=== PATIENT | female | born 2000 | race Caucasian/White ===

== ENCOUNTER 2023-08-07 18:26 | Emergency (ER) | payer MEDICAID ==
[~2023-08-07] VITALS: Ht 149.9 cm; Wt 72.6 kg
[2023-08-07 18:26] VITALS: BP_SYST 129; PULSE 102; RESP 17; TEMP 98.8; O2SAT 98
[2023-08-07 19:23] LABS: BASOPHILS # (AUTO) 0.2 K/uL (0.0-0.2); BASOPHILS % (AUTO) 2.3 % (0.0-2.0); EOSINOPHILS # (AUTO) 0.1 K/uL (0.0-0.4); EOSINOPHILS % (AUTO) 0.9 % (0.0-4.0); HEMATOCRIT 39.1 % (36-48); HEMOGLOBIN 13.6 g/dL (12.0-16.0); LYMPHOCYTES # (AUTO) 1.3 K/uL (1.0-5.5); LYMPHOCYTES % (AUTO) 11.6 % (20.5-51.5); MEAN CORPUSCULAR HEMOGLOBIN 31 pg (27-31); MEAN CORPUSCULAR HGB CONC 35 % (32-36); MEAN CORPUSCULAR VOLUME 90 fL (79.0-98.0); MONOCYTES % (AUTO) 8.8 % (1.7-9.3); NEUTROPHILS # (AUTO) 8.3 K/uL (1.8-7.7); NEUTROPHILS % (AUTO) 76.4 % (40.0-70.0); PLATELET COUNT (AUTO) 265 K/uL (130-430); RED BLOOD CELL COUNT(AUTO) 4.34 MIL/uL (4.2-6.2); RED CELL DISTRIBUTION WIDTH 12.8 % (9.0-15.0); WHITE BLOOD COUNT (AUTO) 10.9 K/uL (4.8-10.8)
[2023-08-07] MEDS: KETOROLAC TROMETHAMINE 30 MG VIAL IM ONE (19:32)
[2023-08-07 19:37] LABS: BILIRUBIN,URINE NEGATIVE (NEGATIVE); BLOOD, URINE NEGATIVE (NEGATIVE); CLARITY/URINE CLEAR (CLEAR); COLOR,URINE YELLOW (YELLOW); GLUCOSE,URINE NEGATIVE (NEGATIVE); KETONES,URINE TRACE (NEGATIVE); LEUKOCYTE ESTERASE ,URINE NEGATIVE (NEGATIVE); NITRITE, URINE NEGATIVE (NEGATIVE); PROTEIN URINE NEGATIVE (NEGATIVE)
[2023-08-07 19:39] LABS: ALBUMIN 3.5 g/dL (3.4-4.8); BILIRUBIN,DIRECT 0.1 mg/dL (0.0-0.3); CALCIUM 9.2 mg/dL (8.4-11.0); CREATININE 0.83 mg/dL (0.55-1.30); POTASSIUM 4.7 mmol/L (3.5-5.1); TOTAL BILIRUBIN 0.4 mg/dL (0.0-1.0); TOTAL PROTEIN, SERUM 8.2 g/dL (6.4-8.3)
[2023-08-07 20:23] LABS: SERUM HCG (QUALITATIVE) NEGATIVE (NEGATIVE)
[2023-08-07] MEDS: HYDROcodone/ACETAMIN 10-325 MG TAB PO ONE (20:42)
[2023-08-07] MEDS ORDERED: IBUP-1969 PO (22:07)
[2023-08-07 22:10] VITALS: BP_SYST 117; PULSE 90; RESP 20; TEMP 97.4; O2SAT 100
== END 2023-08-07 22:22 | disposition home or self-care (01) ==
LOC: SED 18:26
DX: R10.11 Right upper quadrant pain (principal); M94.0 Chondrocostal junction syndrome [Tietze]; Z79.899 Other long term (current) drug therapy
CPT/HCPCS: 99285; 76705; 71045; 80076; 80048; 81001; 84703; 83690; 85025; 36415; 93005; 81025; 96372; 81003; J1885